=== PATIENT | female | born 1970 | race Caucasian/White ===

== ENCOUNTER 2018-02-19 16:28 | Inpatient (IN) | payer OTHER ==
[2018-02-19 17:02] VITALS: BMI 22.6
--- NOTE | 2018-02-19 19:44 | HP ---
CIWA Score - Admission Criteria [facility]ASAS Guidelines: Admission for Medically Managed Detox: Requires at least one of the followin. CIWA greater than 12 2. Seizures within the past 24 hours 3. Delirium tremens within the past 24 hours 4. Hallucinations within the past 24 hours 5. Acute intervention needed for co occurring medical disorder 6. Acute intervention needed for co occurring psychiatric disorder 7. Severe withdrawal that cannot be handled at a lower level of care (continued vomiting, continued diarrhea, abnormal vital signs) requiring intravenous medication and/or fluids 8. Admission ROS [facility] Chief Complaint: Pt states she is here for rehab from opioids- says she was buying percocets in the street. Last use was 5 days ago. Says she was at [facility] for detox about 5 days ago b/c she was withdrawing from opioids- they did not admit her and so pt states she detoxed at home without using any substances. Now wants to be admitted for rehab services. Med problems: Seizures: last seizure yesterday, on Keppra 750mg BID Back pain- muscle relaxant, flexeril, monteleukast- Asthma- proventil, symbicort Depression/anxiety/insomnia: cymbalata, Klonopin. PCP:Dr. Newman: in [facility] DUR/ISTOP: Pt has a prescription for Klonopin- 0.5mg/day, picked up 28 tabs on 01/30/18 Pt has a prescription for tramadol/tylenol- which pt states she is not taking Utox: cocaine. benzo Allergies/Adverse Reactions: Allergies Allergy/AdvReac Type Severity Reaction Status Date / Time No Known Allergies Allergy Verified 02/19/18 17:49 Exam Limitations: No Limitations - Ebola screening Have you traveled outside of the country in the last 21 days: No (N) Have you had contact with anyone from an Ebola affected area: No Have you been sick,other than usual withdrawal symptoms: No Do you have a fever: No - Review of Systems Constitutional: No Symptoms Reported EENT: reports: No Symptoms Reported Respiratory: reports: No Symptoms reported Cardiac: reports: No Symptoms Reported GI: reports: No Symptoms Reported : reports: No Symptoms Reported Musculoskeletal: reports: Other (body aches, anxiety) Integumentary: reports: No Symptoms Reported Neuro: reports: No Symptoms reported Endocrine: reports: No Symptoms Reported Hematology: reports: No Symptoms Reported Psychiatric: reports: Anxious Patient History - Patient Surgical History Past Surgical History: Yes Hx Cataract Extraction: Yes (corneal transplant X5 1995) Hx Appendectomy: Yes - PPD History Previous Implant?: Yes - Smoking Cessation Smoking history: Current every day smoker Have you smoked in the past 12 months: Yes Aproximately how many cigarettes per day: 20 Hx Chewing Tobacco Use: No Initiated information on smoking cessation: Yes 'Breaking Loose' booklet given: 02/19/18 - Substance & Tx. History Hx Substance Use: Yes Substance Use Type: Opiates, Tranquilizers - Substances Abused Oxycontin Date of Last Use: 02/14/18 Cocaine Frequency: 1-2 times per week Date of Last Use: 02/18/18 Admission Physical Exam BHS - Vital Signs Vital Signs: Vital Signs - 24 hr 02/19/18 17:00 Temperature 98.1 F Pulse Rate 100 H Respiratory 18 Rate Blood Pressure 116/60 - Physical General Appearance: Yes: Within Normal Limits HEENTM: Yes: Within Normal Limits, Other (corneal transplant L eye) Respiratory: Yes: Within Normal Limits Neck: Yes: Within Normal Limits Breast: Yes: Breast Exam Deferred Cardiology: Yes: Within Normal Limits Abdominal: Yes: Within Normal Limits Genitourinary: Yes: Within Normal Limits Back: Yes: Within Normal Limits Musculoskeletal: Yes: Within Normal Limits Extremities: Yes: Within Normal Limits Neurological: Yes: Within Normal Limits Integumentary: Yes: Within Normal Limits Lymphatic: Yes: Within Normal Limits - Diagnostic (1) Anxiety Current Visit: Yes Status: Acute (2) Opioid use disorder Current Visit: Yes Status: Acute (3) Cocaine use disorder Current Visit: Yes Status: Acute (4) Asthma Current Visit: Yes Status: Chronic (5) Seizures Current Visit: Yes Status: Acute (6) PTSD (post-traumatic stress disorder) Current Visit: Yes Status: Chronic (7) Depression Current Visit: Yes Status: Acute (8) Insomnia Current Visit: Yes Status: Acute (9) Klonopin use disorder, mild Current Visit: Yes Status: Acute BHS Breath Alcohol Content Breath Alcohol Content: 0 Urine Pregancy Test - Result Urine Test Results: Negative- NO Line Present Urine Drug Screen - Results Drug Screen Negative: No Urine Drug Screen Results: JAMIL-Cocaine, BZO-Benzodiazepines Inpatient Rehab Admission - Initial Determination Are CD services needed?: Yes Free of communicable disease: Yes Not in need of hospitalization: Yes - Rehab Admission Criteria Previous failed treatment: Yes Poor recovery environment: Yes Comorbidities: Yes Lacks judgement: Yes Patient is meeting Inpatient Rehab admission criteria:: Yes (rehab from opioids - finished detox)
[2018-02-19] MEDS ORDERED: LOPERAMIDE HCL 2 MG CAPSULE PO PRN (19:56)
[2018-02-19] MEDS ORDERED: MENTHOL/PHENOL 1 EACH UD MM PRN (19:56)
[2018-02-19] MEDS ORDERED: guaiFENesin/D-METHORPHAN HB 10 ML UNIT-DOSE CUPS PO PRN (19:56)
[2018-02-19] MEDS ORDERED: MAGNESIUM CITRATE 300 ML BOTTLE PO PRN (19:56)
[2018-02-19] MEDS ORDERED: MAGNESIUM HYDROX 2400MG/30ML ORAL SUSPENSION 30 ML CUP PO PRN (19:56)
[2018-02-19] MEDS ORDERED: MAG HYDROX/AL HYDROX/SIMETH 30 ML UNIT-DOSE CUP PO PRN (19:56)
[2018-02-19] MEDS ORDERED: P-EPHED 60MG/TRIPROLIDI 2.5MG TABLET PO PRN (19:56)
[2018-02-19] MEDS ORDERED: TUBERCULIN PPD 5 TU/0.1ML VIAL ID ONE ×2 (21:55→23:56)
[2018-02-19] MEDS ORDERED: MELATONIN 5 MG TABLETS PO PRN (22:00)
[2018-02-19] MEDS ORDERED: clonazePAM 0.5 MG TABLET PO SCH (22:00)
[2018-02-19] MEDS: THIAMINE HCL 100 MG TABLET (FP) PO SCH (23:55)
[2018-02-20] MEDS ORDERED: ALBUTEROL SO4 8 GM HFA INHALER IH PRN (00:05)
[2018-02-20] MEDS: IBUPROFEN 400 MG TABLET (FP) PO PRN (04:39)
[2018-02-20] MEDS ORDERED: PT OWN MED DRAWER 7, Y5N ONE ×2 (08:43→19:07)
[2018-02-20] MEDS: PANTOPRAZOLE 40 MG TABLET (FP) PO SCH (09:37)
[2018-02-20] MEDS: NICOTINE 21 MG/24 HOURS TOPICAL PATCH TD SCH (09:37)
[2018-02-20] MEDS: PRENATAL VITAMINS W/ FOLIC ACID TABLET (FP) PO SCH (09:37)
[2018-02-20] MEDS: levETIRAcetam 250 MG TABLET (FP) PO SCH ×2 (09:37→21:18)
[2018-02-20] MEDS: DULoxetine HCL 60 MG CAPSULE.DR PO SCH (09:37)
[2018-02-20] MEDS ORDERED: PATIENT'S OWN MEDICATION (NON-FORMULARY) (Montelukast Sodium [Singulair] 10 MG) PO SCH (10:00)
[2018-02-20] MEDS: clonazePAM 0.5 MG TABLET PO SCH (11:00)
[2018-02-20] MEDS: GABAPENTIN PO SCH ×3 (11:00→21:18)
[2018-02-20] MEDS: NICOTINE POLACRILEX 2 MG GUM BUC PRN (11:21)
[2018-02-20] MEDS: PATIENT'S OWN MEDICATION (NON-FORMULARY) (Albuterol Sulfate Inhaler - [Ventolin HFA Inhale PO SCH ×2 (11:25→11:26)
[2018-02-20] MEDS: LEVETIRACETAM PO SCH (11:26)
[2018-02-20 15:23] LABS: HEMOGLOBIN 12.6 GM/dL (10.7-15.3); MCH 29.7 pg (25.7-33.7); MCHC 31.7 g/dl (32.0-36.0); MEAN CELL VOLUME 93.9 fl (80-96); MEAN PLT VOLUME 7.9 fl (7.5-11.1); PLATELET COUNT 271 K/MM3 (134-434); RBC 4.26 M/mm3 (3.60-5.2); RDW 13.9 % (11.6-15.6); WHITE BLOOD COUNT 5.3 K/mm3 (4.0-10.0)
[2018-02-20 15:38] LABS: ALBUMIN 3.3 g/dl (3.4-5.0); ALK PHOS 39 U/L (45-117); ANION GAP 8 MMOL/L (8-16); BILIRUBIN,TOTAL 0.1 mg/dL (0.2-1); BLOOD UREA NITROGEN 23 mg/dL (7-18); CALCIUM 8.1 mg/dL (8.5-10.1); CHLORIDE 110 mmol/L (98-107); CO2 24 mmol/L (21-32); CREATININE 0.9 mg/dL (0.55-1.3); GLUCOSE,RANDOM 117 mg/dL (74-106); POTASSIUM 4.2 mmol/L (3.5-5.1); SGOT/AST 15 U/L (15-37); SGPT/ALT 19 U/L (13-61); SODIUM 142 mmol/L (136-145); TOT PROT 6.1 g/dl (6.4-8.2)
[2018-02-20 16:46] LABS: URINE APPEARANCE CLEAR; URINE BILIRUBIN NEGATIVE (<2.0 mg/dL); URINE COLOR LTYELLOW; URINE GLUCOSE (UA) NEGATIVE (NEGATIVE); URINE KETONE NEGATIVE (NEGATIVE); URINE LEUK ESTERASE TRACE (NEGATIVE); URINE NITRITE NEGATIVE (NEGATIVE); URINE PROTEIN NEGATIVE (NEGATIVE); URINE UROBILINOGEN NEGATIVE mg/dL (0.2-1.0)
[2018-02-20 17:11] LABS: CALCIUM OXALATE CRYSTALS MODERATE /hpf (NONE SEEN); EPI CELLS RARE /HPF (FEW); URINE HYALINE CAST 1 /lpf; URINE MUCUS RARE
[2018-02-20] MEDS: THIAMINE HCL 100 MG TABLET (FP) PO SCH (21:18)
[2018-02-20] MEDS: PATIENT'S OWN MEDICATION (NON-FORMULARY) (Montelukast Sodium [Singulair] 10 MG) PO SCH (21:19)
--- NOTE | 2018-02-21 08:23 | HP ---
Psychiatrist Admission - Data Date of interview: 02/21/18 Vital Signs: Vital Signs - 24 hr 02/21/18 02/21/18 02/21/18 00:30 03:30 06:53 Temperature 97.8 F Pulse Rate 83 Respiratory 17 18 18 Rate Blood Pressure 118/77 Allergies/Adverse Reactions: Allergies Allergy/AdvReac Type Severity Reaction Status Date / Time No Known Allergies Allergy Verified 02/19/18 17:49
--- NOTE | 2018-02-21 08:29 | HP ---
Psychiatrist Admission - Data Date of interview: 02/21/18 Identifying data: This is the first [facility] admission for this 47 years old female, mother of2 children, unemployed on SSI, domiciled Medical History: Significant for bronchial arthma, seizure disorder, back pain and history of corneal transplant. Smokes cigarettes 1 ppd Vital Signs: Vital Signs - 24 hr 02/21/18 02/21/18 02/21/18 00:30 03:30 06:53 Temperature 97.8 F Pulse Rate 83 Respiratory 17 18 18 Rate Blood Pressure 118/77 Allergies/Adverse Reactions: Allergies Allergy/AdvReac Type Severity Reaction Status Date / Time No Known Allergies Allergy Verified 02/19/18 17:49 Date of last physical exam: 02/19/18 Concur with the findings of this exam: Yes - Substance Abuse/Tx History Hx Substance Use: Yes Substance Use Type: Cocaine (Started using cocaine at age, consumes 1-2 times weekly. Last used on 02/18/17), Heroin, Opiates (Started using oxycontin at age, consumes. Last used on 02/14/18) Psychiatric Findings - Problem List ([place] 1, 2,3) (1) Opioid dependence Current Visit: Yes Status: Acute (2) Cocaine dependence Current Visit: Yes Status: Acute (3) Nicotine dependence Current Visit: Yes Status: Chronic
[2018-02-21] MEDS: NICOTINE 21 MG/24 HOURS TOPICAL PATCH TD SCH (09:41)
[2018-02-21] MEDS: clonazePAM 0.5 MG TABLET PO SCH (09:42)
[2018-02-21] MEDS: levETIRAcetam 250 MG TABLET (FP) PO SCH ×2 (09:42→21:15)
[2018-02-21] MEDS: PANTOPRAZOLE 40 MG TABLET (FP) PO SCH (09:43)
[2018-02-21] MEDS: PRENATAL VITAMINS W/ FOLIC ACID TABLET (FP) PO SCH (09:43)
[2018-02-21] MEDS: GABAPENTIN PO SCH ×2 (09:43→21:16)
[2018-02-21] MEDS: DULoxetine HCL 60 MG CAPSULE.DR PO SCH (09:43)
[2018-02-21] MEDS: IBUPROFEN 400 MG TABLET (FP) PO PRN (09:45)
[2018-02-21] MEDS: NICOTINE POLACRILEX 2 MG GUM BUC PRN ×3 (10:06→21:30)
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
[2018-02-21] MEDS: hydrOXYzine PAMOATE 50 MG CAPSULE (FP) PO PRN ×2 (11:22→20:35)
[2018-02-21] MEDS: PATIENT'S OWN MEDICATION (NON-FORMULARY) (Montelukast Sodium [Singulair] 10 MG) PO SCH (21:15)
[2018-02-21] MEDS: THIAMINE HCL 100 MG TABLET (FP) PO SCH (21:15)
[2018-02-21] MEDS: QUEtiapine FUMARATE 100 MG TABLET (FP) PO SCH (21:17)
[2018-02-22] MEDS: PANTOPRAZOLE 40 MG TABLET (FP) PO SCH (09:57)
[2018-02-22] MEDS: DULoxetine HCL 60 MG CAPSULE.DR PO SCH (09:57)
[2018-02-22] MEDS: levETIRAcetam 250 MG TABLET (FP) PO SCH ×2 (09:57→21:12)
[2018-02-22] MEDS: clonazePAM 0.5 MG TABLET PO SCH (09:57)
[2018-02-22] MEDS: PRENATAL VITAMINS W/ FOLIC ACID TABLET (FP) PO SCH (09:57)
[2018-02-22] MEDS: GABAPENTIN PO SCH ×2 (09:58→21:11)
[2018-02-22] MEDS: hydrOXYzine PAMOATE 50 MG CAPSULE (FP) PO PRN ×3 (09:59→21:10)
[2018-02-22] MEDS: NICOTINE 21 MG/24 HOURS TOPICAL PATCH TD SCH (09:59)
[2018-02-22] MEDS: ALBUTEROL SO4 8 GM HFA INHALER IH PRN (10:56)
[2018-02-22] MEDS: NICOTINE POLACRILEX 2 MG GUM BUC PRN (17:40)
[2018-02-22] MEDS: THIAMINE HCL 100 MG TABLET (FP) PO SCH (21:10)
[2018-02-22] MEDS: QUEtiapine FUMARATE 100 MG TABLET (FP) PO SCH (21:10)
[2018-02-22] MEDS: PATIENT'S OWN MEDICATION (NON-FORMULARY) (Montelukast Sodium [Singulair] 10 MG) PO SCH (21:11)
[2018-02-23] MEDS: PANTOPRAZOLE 40 MG TABLET (FP) PO SCH (10:08)
[2018-02-23] MEDS: GABAPENTIN PO SCH ×2 (10:08→21:12)
[2018-02-23] MEDS: DULoxetine HCL 60 MG CAPSULE.DR PO SCH (10:08)
[2018-02-23] MEDS: PRENATAL VITAMINS W/ FOLIC ACID TABLET (FP) PO SCH (10:08)
[2018-02-23] MEDS: levETIRAcetam 250 MG TABLET (FP) PO SCH ×2 (10:08→21:11)
[2018-02-23] MEDS: NICOTINE 21 MG/24 HOURS TOPICAL PATCH TD SCH (10:09)
[2018-02-23] MEDS: clonazePAM 0.5 MG TABLET PO SCH (10:09)
[2018-02-23] MEDS: hydrOXYzine PAMOATE 50 MG CAPSULE (FP) PO PRN ×3 (10:10→18:11)
[2018-02-23] MEDS: NICOTINE POLACRILEX 2 MG GUM BUC PRN (10:44)
[2018-02-23] MEDS: THIAMINE HCL 100 MG TABLET (FP) PO SCH (21:08)
[2018-02-23] MEDS: QUEtiapine FUMARATE 100 MG TABLET (FP) PO SCH (21:09)
[2018-02-23] MEDS: PATIENT'S OWN MEDICATION (NON-FORMULARY) (Montelukast Sodium [Singulair] 10 MG) PO SCH (21:09)
[2018-02-24] MEDS ORDERED: PT OWN MED DRAWER 7, Y5N ONE ×2 (08:54→12:07)
[2018-02-24] MEDS: DULoxetine HCL 60 MG CAPSULE.DR PO SCH (09:58)
[2018-02-24] MEDS: GABAPENTIN PO SCH ×2 (09:59→21:10)
[2018-02-24] MEDS: PANTOPRAZOLE 40 MG TABLET (FP) PO SCH (10:00)
[2018-02-24] MEDS: clonazePAM 0.5 MG TABLET PO SCH (10:00)
[2018-02-24] MEDS: NICOTINE 21 MG/24 HOURS TOPICAL PATCH TD SCH (10:00)
[2018-02-24] MEDS: PRENATAL VITAMINS W/ FOLIC ACID TABLET (FP) PO SCH (10:00)
[2018-02-24] MEDS: hydrOXYzine PAMOATE 50 MG CAPSULE (FP) PO PRN ×3 (10:02→19:05)
[2018-02-24] MEDS: levETIRAcetam 250 MG TABLET (FP) PO SCH ×2 (10:49→21:08)
[2018-02-24] MEDS: NICOTINE POLACRILEX 2 MG GUM BUC PRN (19:06)
[2018-02-24] MEDS: QUEtiapine FUMARATE 100 MG TABLET (FP) PO SCH (21:08)
[2018-02-24] MEDS: THIAMINE HCL 100 MG TABLET (FP) PO SCH (21:08)
[2018-02-24] MEDS: PATIENT'S OWN MEDICATION (NON-FORMULARY) (Montelukast Sodium [Singulair] 10 MG) PO SCH (21:08)
[2018-02-25] MEDS: NICOTINE POLACRILEX 2 MG GUM BUC PRN ×2 (08:56→19:45)
[2018-02-25] MEDS: hydrOXYzine PAMOATE 50 MG CAPSULE (FP) PO PRN ×3 (08:56→20:43)
[2018-02-25] MEDS: PANTOPRAZOLE 40 MG TABLET (FP) PO SCH (09:56)
[2018-02-25] MEDS: DULoxetine HCL 60 MG CAPSULE.DR PO SCH (09:56)
[2018-02-25] MEDS: PRENATAL VITAMINS W/ FOLIC ACID TABLET (FP) PO SCH (09:56)
[2018-02-25] MEDS: levETIRAcetam 250 MG TABLET (FP) PO SCH ×2 (09:56→21:00)
[2018-02-25] MEDS: GABAPENTIN PO SCH ×2 (09:57→21:02)
[2018-02-25] MEDS: NICOTINE 21 MG/24 HOURS TOPICAL PATCH TD SCH (09:58)
[2018-02-25] MEDS: clonazePAM 0.5 MG TABLET PO SCH (10:59)
[2018-02-25] MEDS: IBUPROFEN 400 MG TABLET (FP) PO PRN (12:42)
[2018-02-25] MEDS: ACETAMINOPHEN 325 MG TABLET (FP) PO PRN ×2 (16:43→19:45)
[2018-02-25] MEDS: THIAMINE HCL 100 MG TABLET (FP) PO SCH (21:00)
[2018-02-25] MEDS: QUEtiapine FUMARATE 100 MG TABLET (FP) PO SCH (21:00)
[2018-02-25] MEDS: PATIENT'S OWN MEDICATION (NON-FORMULARY) (Montelukast Sodium [Singulair] 10 MG) PO SCH (21:01)
[2018-02-26] MEDS ORDERED: PT OWN MED DRAWER 7, Y5N ONE ×2 (08:38→19:48)
[2018-02-26] MEDS: hydrOXYzine PAMOATE 50 MG CAPSULE (FP) PO PRN ×2 (08:40→13:38)
[2018-02-26] MEDS: IBUPROFEN 400 MG TABLET (FP) PO PRN (08:40)
[2018-02-26] MEDS: clonazePAM 0.5 MG TABLET PO SCH (10:08)
[2018-02-26] MEDS: PANTOPRAZOLE 40 MG TABLET (FP) PO SCH (10:08)
[2018-02-26] MEDS: NICOTINE 21 MG/24 HOURS TOPICAL PATCH TD SCH (10:08)
[2018-02-26] MEDS: PRENATAL VITAMINS W/ FOLIC ACID TABLET (FP) PO SCH (10:08)
[2018-02-26] MEDS: levETIRAcetam 250 MG TABLET (FP) PO SCH ×2 (10:08→21:11)
[2018-02-26] MEDS: DULoxetine HCL 60 MG CAPSULE.DR PO SCH (10:09)
[2018-02-26] MEDS: GABAPENTIN PO SCH ×2 (10:10→21:12)
[2018-02-26] MEDS ORDERED: CALCIUM 500MG/VIT-D 200 UNITS COMBO TABLET (FP) PO ONE (10:30)
--- NOTE | 2018-02-26 15:16 | PN ---
S Progress Note Note: Patient reports sleeping poorly on Seroquel 100 mg and Melatonin 5 mg taken at bedtime. Will increase Melaonin dosage to 10 mg
[2018-02-26] MEDS: THIAMINE HCL 100 MG TABLET (FP) PO SCH (21:11)
[2018-02-26] MEDS: QUEtiapine FUMARATE 100 MG TABLET (FP) PO SCH (21:11)
[2018-02-26] MEDS: CALCIUM 500MG/VIT-D 200 UNITS COMBO TABLET (FP) PO SCH (21:11)
[2018-02-26] MEDS: PATIENT'S OWN MEDICATION (NON-FORMULARY) (Montelukast Sodium [Singulair] 10 MG) PO SCH (21:12)
[2018-02-26] MEDS: MELATONIN 5 MG TABLETS PO PRN (21:14)
[2018-02-27] MEDS: NICOTINE POLACRILEX 2 MG GUM BUC PRN ×2 (08:15→18:13)
[2018-02-27] MEDS: levETIRAcetam 250 MG TABLET (FP) PO SCH ×2 (10:09→21:21)
[2018-02-27] MEDS: DULoxetine HCL 60 MG CAPSULE.DR PO SCH (10:09)
[2018-02-27] MEDS: PRENATAL VITAMINS W/ FOLIC ACID TABLET (FP) PO SCH (10:09)
[2018-02-27] MEDS: PANTOPRAZOLE 40 MG TABLET (FP) PO SCH (10:09)
[2018-02-27] MEDS: GABAPENTIN PO SCH ×2 (10:10→21:21)
[2018-02-27] MEDS: CALCIUM 500MG/VIT-D 200 UNITS COMBO TABLET (FP) PO SCH ×2 (10:10→21:21)
[2018-02-27] MEDS: NICOTINE 21 MG/24 HOURS TOPICAL PATCH TD SCH (10:11)
[2018-02-27] MEDS: clonazePAM 0.5 MG TABLET PO SCH (10:11)
[2018-02-27] MEDS: ACETAMINOPHEN 325 MG TABLET (FP) PO PRN (13:17)
[2018-02-27] MEDS: hydrOXYzine PAMOATE 50 MG CAPSULE (FP) PO PRN ×2 (15:44→18:12)
[2018-02-27] MEDS: QUEtiapine FUMARATE 100 MG TABLET (FP) PO SCH (21:21)
[2018-02-27] MEDS: PATIENT'S OWN MEDICATION (NON-FORMULARY) (Montelukast Sodium [Singulair] 10 MG) PO SCH (21:21)
[2018-02-27] MEDS: THIAMINE HCL 100 MG TABLET (FP) PO SCH (21:22)
[2018-02-27] MEDS: MELATONIN 5 MG TABLETS PO PRN (21:23)
[2018-02-28] MEDS: ACETAMINOPHEN 325 MG TABLET (FP) PO PRN (08:20)
[2018-02-28] MEDS: ALBUTEROL SO4 8 GM HFA INHALER IH PRN (08:22)
[2018-02-28] MEDS: hydrOXYzine PAMOATE 50 MG CAPSULE (FP) PO PRN ×2 (08:54→19:26)
[2018-02-28] MEDS: PANTOPRAZOLE 40 MG TABLET (FP) PO SCH (10:10)
[2018-02-28] MEDS: DULoxetine HCL 60 MG CAPSULE.DR PO SCH (10:10)
[2018-02-28] MEDS: PRENATAL VITAMINS W/ FOLIC ACID TABLET (FP) PO SCH (10:10)
[2018-02-28] MEDS: CALCIUM 500MG/VIT-D 200 UNITS COMBO TABLET (FP) PO SCH ×2 (10:10→21:46)
[2018-02-28] MEDS: levETIRAcetam 250 MG TABLET (FP) PO SCH ×2 (10:11→21:46)
[2018-02-28] MEDS: NICOTINE 21 MG/24 HOURS TOPICAL PATCH TD SCH (10:11)
[2018-02-28] MEDS: GABAPENTIN PO SCH ×2 (10:11→21:47)
[2018-02-28] MEDS ORDERED: ALBUTEROL SO4 0.083% IH SOL 2.5 MG/3 ML VIAL.NEB. NEB PRN (11:10)
[2018-02-28] MEDS: clonazePAM 0.5 MG TABLET PO SCH ×2 (12:16→21:45)
[2018-02-28] MEDS ORDERED: PT OWN MED DRAWER 7, Y5N ONE ×3 (16:39→22:18)
[2018-02-28] MEDS: IBUPROFEN 400 MG TABLET (FP) PO PRN (19:26)
[2018-02-28] MEDS: THIAMINE HCL 100 MG TABLET (FP) PO SCH (21:45)
[2018-02-28] MEDS: QUEtiapine FUMARATE 100 MG TABLET (FP) PO SCH (21:45)
[2018-02-28] MEDS: MELATONIN 5 MG TABLETS PO PRN (21:49)
[2018-02-28] MEDS: PATIENT'S OWN MEDICATION (NON-FORMULARY) (Montelukast Sodium [Singulair] 10 MG) PO SCH (22:18)
[2018-03-01] MEDS: hydrOXYzine PAMOATE 50 MG CAPSULE (FP) PO PRN ×3 (06:35→18:47)
[2018-03-01] MEDS: NICOTINE POLACRILEX 2 MG GUM BUC PRN ×2 (08:41→18:47)
[2018-03-01] MEDS: DULoxetine HCL 60 MG CAPSULE.DR PO SCH (09:39)
[2018-03-01] MEDS: levETIRAcetam 250 MG TABLET (FP) PO SCH ×2 (09:40→21:13)
[2018-03-01] MEDS: clonazePAM 0.5 MG TABLET PO SCH ×2 (09:40→21:14)
[2018-03-01] MEDS: GABAPENTIN PO SCH ×2 (09:40→21:13)
[2018-03-01] MEDS: NICOTINE 21 MG/24 HOURS TOPICAL PATCH TD SCH (09:41)
[2018-03-01] MEDS: PANTOPRAZOLE 40 MG TABLET (FP) PO SCH (09:41)
[2018-03-01] MEDS: PRENATAL VITAMINS W/ FOLIC ACID TABLET (FP) PO SCH (09:41)
[2018-03-01] MEDS: CALCIUM 500MG/VIT-D 200 UNITS COMBO TABLET (FP) PO SCH ×2 (09:41→21:13)
[2018-03-01] MEDS ORDERED: PT OWN MED DRAWER 7, Y5N ONE (20:01)
[2018-03-01] MEDS: PATIENT'S OWN MEDICATION (NON-FORMULARY) (Montelukast Sodium [Singulair] 10 MG) PO SCH (21:13)
[2018-03-01] MEDS: QUEtiapine FUMARATE 100 MG TABLET (FP) PO SCH (21:14)
[2018-03-01] MEDS: THIAMINE HCL 100 MG TABLET (FP) PO SCH (21:14)
[2018-03-01] MEDS: MELATONIN 5 MG TABLETS PO PRN (21:14)
[2018-03-02] MEDS: IBUPROFEN 400 MG TABLET (FP) PO PRN (09:05)
[2018-03-02] MEDS: CALCIUM 500MG/VIT-D 200 UNITS COMBO TABLET (FP) PO SCH ×2 (09:06→21:16)
[2018-03-02] MEDS: PRENATAL VITAMINS W/ FOLIC ACID TABLET (FP) PO SCH (09:06)
[2018-03-02] MEDS: DULoxetine HCL 60 MG CAPSULE.DR PO SCH (09:06)
[2018-03-02] MEDS: levETIRAcetam 250 MG TABLET (FP) PO SCH ×2 (09:07→21:16)
[2018-03-02] MEDS: GABAPENTIN PO SCH ×2 (09:07→21:15)
[2018-03-02] MEDS: PANTOPRAZOLE 40 MG TABLET (FP) PO SCH (09:07)
[2018-03-02] MEDS: NICOTINE 21 MG/24 HOURS TOPICAL PATCH TD SCH (09:08)
[2018-03-02] MEDS: clonazePAM 0.5 MG TABLET PO SCH ×2 (09:08→21:16)
[2018-03-02] MEDS: hydrOXYzine PAMOATE 50 MG CAPSULE (FP) PO PRN (16:25)
[2018-03-02] MEDS: NICOTINE POLACRILEX 2 MG GUM BUC PRN (16:26)
[2018-03-02] MEDS: QUEtiapine FUMARATE 100 MG TABLET (FP) PO SCH (21:16)
[2018-03-02] MEDS: THIAMINE HCL 100 MG TABLET (FP) PO SCH (21:16)
[2018-03-02] MEDS: PATIENT'S OWN MEDICATION (NON-FORMULARY) (Montelukast Sodium [Singulair] 10 MG) PO SCH (21:16)
[2018-03-02] MEDS: MELATONIN 5 MG TABLETS PO PRN (21:17)
[2018-03-03 07:02] VITALS: BP 102/69; PULSE 74; TEMP 97.5
[2018-03-03] MEDS ORDERED: PT OWN MED DRAWER 7, Y5N ONE (08:42)
[2018-03-03] MEDS: hydrOXYzine PAMOATE 50 MG CAPSULE (FP) PO PRN (08:45)
[2018-03-03] MEDS: NICOTINE POLACRILEX 2 MG GUM BUC PRN (08:45)
[2018-03-03] MEDS: clonazePAM 0.5 MG TABLET PO SCH (09:46)
[2018-03-03] MEDS: GABAPENTIN PO SCH (09:46)
[2018-03-03] MEDS: NICOTINE 21 MG/24 HOURS TOPICAL PATCH TD SCH (09:46)
[2018-03-03] MEDS: DULoxetine HCL 60 MG CAPSULE.DR PO SCH (09:46)
[2018-03-03] MEDS: PRENATAL VITAMINS W/ FOLIC ACID TABLET (FP) PO SCH (09:46)
[2018-03-03] MEDS: PANTOPRAZOLE 40 MG TABLET (FP) PO SCH (09:46)
[2018-03-03] MEDS: CALCIUM 500MG/VIT-D 200 UNITS COMBO TABLET (FP) PO SCH (09:46)
--- NOTE | 2018-03-03 09:50 | PN ---
Psychiatric Progress Note Vital Signs: Vital Signs Period Temp Pulse Resp BP Sys/Robison Pulse Ox Last 24 Hr 97.5 F 74 16-18 102/69 Date of Session: 03/03/18 Chief Complaint:: Discharge visit HPI: Cocaine ,Opioid dependence comorbid with PTSD. ROS: Seizures. Current Medications: Active Medications Generic Name Dose Route Start Last Admin Trade Name Freq PRN Reason Stop Dose Admin Acetaminophen 650 mg 02/19/18 19:56 02/28/18 08:20 Tylenol - PO 650 mg Q4H PRN Administration FEVER Al Hydroxide/Mg Hydroxide 30 ml 02/19/18 19:56 Mylanta Oral Suspension - PO Q6H PRN DYSPEPSIA Albuterol Sulfate 2 puff 02/20/18 10:21 02/28/18 08:22 Ventolin Hfa Inhaler - IH 2 puff Q4H PRN Administration SHORT OF BREATH/WHEEZING Albuterol Sulfate 1 amp 02/28/18 11:10 Ventolin 0.083% Nebulizer Soln - NEB Q4H PRN ASTHMA Calcium Carbonate/Cholecalciferol 1 tab 02/26/18 22:00 03/02/18 21:16 Os-Brandon 500+D - PO 1 tab BID CLAUDINE Administration Clonazepam 0.5 mg 02/28/18 12:00 03/02/18 21:16 Klonopin - PO 03/07/18 11:59 0.5 mg BID CLAUDINE Administration Duloxetine HCl 60 mg 02/20/18 10:00 03/02/18 09:06 Cymbalta - PO 60 mg DAILY CLAUDINE Administration Eucalyptus/Menthol/Phenol/Sorbitol 1 each 02/19/18 19:56 Cepastat Lozenge - MM Q4H PRN SORE THROAT Guaifenesin 10 ml 02/19/18 19:56 02/28/18 08:20 Robitussin Dm - PO 10 ml Q6H PRN Administration COUGH Hydroxyzine Pamoate 50 mg 02/19/18 19:56 03/03/18 08:45 Vistaril - PO 50 mg Q4H PRN Administration AGITATION Ibuprofen 400 mg 02/19/18 19:56 03/02/18 09:05 Motrin - PO 400 mg Q6H PRN Administration Pain level 4-6 Levetiracetam 750 mg 02/20/18 10:00 03/02/18 21:16 Keppra - PO 750 mg BID CLAUDINE Administration Loperamide HCl 4 mg 02/19/18 19:56 Imodium - PO Q6H PRN DIARRHEA Magnesium Citrate 300 ml 02/19/18 19:56 Citroma - PO Q48H PRN CONSTIPATION Magnesium Hydroxide 30 ml 02/19/18 19:56 02/21/18 15:03 Milk Of Magnesia - PO 30 ml DAILY PRN Administration CONSTIPATION Melatonin 10 mg 02/26/18 15:14 03/02/18 21:17 Melatonin PO 10 mg HS PRN Administration INSOMNIA Nicotine 21 mg 02/20/18 10:00 03/02/18 09:08 Nicoderm Patch - TD 21 mg DAILY CLAUDINE Administration Nicotine Polacrilex 2 mg 02/20/18 00:07 03/03/18 08:45 Nicorette Gum - BUC 2 mg Q2H PRN Administration NICOTINE REPLACEMENT RX Non-Formulary Medication 400 mg 02/19/18 22:00 03/02/18 21:15 Gabapentin [Neurontin -] PO 400 mg BID CLAUDINE Administration Non-Formulary Medication 10 mg 02/20/18 22:00 03/02/18 21:16 Montelukast Sodium [Singulair] PO 10 mg DAILY@2200 CLAUDINE Administration Pantoprazole Sodium 40 mg 02/20/18 10:00 03/02/18 09:07 Protonix - PO 40 mg DAILY CLAUDINE Administration Multivit/Folic Acid/Iron 1 tab 02/20/18 10:00 03/02/18 09:06 Vitamins (Sjr) - PO 1 tab DAILY CLAUDINE Administration Pseudoephedrine/Triprolidine 1 combo 02/19/18 19:56 Actifed - PO TID PRN NASAL CONGESTION Quetiapine Fumarate 100 mg 02/21/18 22:00 03/02/18 21:16 Seroquel - PO 100 mg HS CLAUDINE Administration Thiamine HCl 100 mg 02/19/18 22:00 03/02/18 21:16 Vitamin B1 - PO 100 mg HS CLAUDINE Administration Current Side Effect: No Lab tests ordered: No Lab tests reviewed: Yes Provider note:: Patient completed this program today.She has met her treatment goala sand will continue to address her issues on outpatient basis at [facility] in [facility].Patient reports finding that current medications including Neurontin 400 mg po bid,Cymbalta 60 mg po daily,SEroquel 100 mg po hs help to cope with anxiety mood instability,depression.Scripts for 30 days provided. Supportive therapy provided focusing on relapse prevention.Coping skills,support utilization has been discussed as well as other resourses to ariana sparks. Patient is stable for discharge today. Total face to face time:: 30 Mental Status Exam - Mental Status Exam Alert and Oriented to: Time, Place, Person Cognitive Function: Grossly Intact Patient Appearance: Well Groomed Mood: Euthymic Affect: Appropriate, Mood Congruent, Normal Range Patient Behavior: Cooperative Speech Pattern: Clear Voice Loudness: Normal Thought Process: Goal Oriented Thought Disorder: Not Present Hallucinations: Denies Suicidal Ideation: Denies Homicidal Ideation: Denies Insight/Judgement: Fair Sleep: Fair Appetite: Good Muscle strength/Tone: Normal Gait/Station: Normal Psychiatric Treatment Plan - Problem List (1) Asthma Current Visit: Yes (2) Cocaine dependence Current Visit: Yes (3) Opioid dependence Current Visit: Yes (4) Seizure disorder Current Visit: Yes (5) PTSD (post-traumatic stress disorder) Current Visit: Yes (6) Nicotine dependence Current Visit: Yes
--- NOTE | 2018-03-03 10:28 | PN ---
"[facility] Progress Note Note: NURSE CALLED TO REPORT PATIENT IS DISCHARGING EARLY AND NEEDS SOME RX. PT HAS OWN PRIMARY CARE DOCTOR AND WILL BE FOLLOWING UP AFTER DISCHARGE. PT REPORTS SHE HAS RX FOR KEPPRA AND NO NEED FOR RX. COURTESY RX FOR PROTONIX 40 MG PO DAILY #28, CALCIUM 1 TAB PO DAILY #28; ALBUTEROL INHALER PRN #1; SINGULAIR 10 MG PO HS #28. Vital Signs - 24 hr 03/03/18 03/03/18 00:30 07:01 Temperature 97.5 F L Pulse Rate 74 Respiratory 16 18 Rate Blood Pressure 102/69 Laboratory Tests 02/20/18 02/20/18 02/20/18 09:25 09:25 09:25 WBC 5.3 RBC 4.26 Hgb 12.6 Hct 40.0 MCV 93.9 MCH 29.7 MCHC 31.7 L RDW 13.9 Plt Count 271 MPV 7.9 Sodium 142 Potassium 4.2 Chloride 110 H Carbon Dioxide 24 Anion Gap 8 BUN 23 H Creatinine 0.9 Creat Clearance w eGFR > 60 Random Glucose 117 H Calcium 8.1 L Total Bilirubin 0.1 L AST 15 ALT 19 Alkaline Phosphatase 39 L Total Protein 6.1 L Albumin 3.3 L Urine Color Urine Appearance Urine pH Ur Specific [place] Urine Protein Urine Glucose (UA) Urine Ketones Urine Blood Urine Nitrite Urine Bilirubin Urine Urobilinogen Ur Leukocyte Esterase Urine WBC (Auto) Urine RBC (Auto) Ur Epithelial Cells Calcium Oxalate Crystal Hyaline Casts Urine Mucus RPR Titer Nonreactive 02/20/18 11:00 WBC RBC Hgb Hct MCV MCH MCHC RDW Plt Count MPV Sodium Potassium Chloride Carbon Dioxide Anion Gap BUN Creatinine Creat Clearance w eGFR Random Glucose Calcium Total Bilirubin AST ALT Alkaline Phosphatase Total Protein Albumin Urine Color Ltyellow Urine Appearance Clear Urine pH 5.0 Ur Specific [place] 1.019 Urine Protein Negative Urine Glucose (UA) Negative Urine Ketones Negative Urine Blood Negative Urine Nitrite Negative Urine Bilirubin Negative Urine Urobilinogen Negative Ur Leukocyte Esterase Trace Urine WBC (Auto) 3 Urine RBC (Auto) <1 Ur Epithelial Cells Rare Calcium Oxalate Crystal Moderate Hyaline Casts 1 Urine Mucus Rare RPR Titer The Drug Utilization Report below displays all of the controlled substance prescriptions, if any, that your patient has filled in the last twelve months. The information displayed on this report is compiled from pharmacy submissions to the Department, and accurately reflects the information as submitted by the pharmacies. This report was requested by: Shante Resendez | Reference #: [id number] You have not added a JOSE number. Keeping your JOSE number(s) up to date on the My JOSE Numbers page will enable the separation of your prescriptions from others ' in the search results. Others' Prescriptions Patient Name: Caitie Clemons Date: 1970 Address: [address] [place] [address] Sex: Female Rx Written Rx Dispensed Drug Quantity Days Supply Prescriber Name 01/31/2018 02/06/2018 tramadol-acetaminophen 37.5-325 mg tab 40 5 Perepelyuk, Ирина 01/29/2018 01/30/2018 clonazepam 0.5 mg tablet 28 28 Dudzicz-Slowik, Madina Cherelle 01/15/2018 01/15/2018 clonazepam 0.5 mg tablet 14 14 Miracle Murphy 12/30/2017 12/30/2017 clonazepam 0.5 mg tablet 14 14 Dudzicz-Slowik, Madina Cherelle 11/12/2017 11/14/2017 acetaminophen-cod #4 tablet 60 30 Santiago Klein MD 10/29/2017 10/29/2017 clonazepam 0.5 mg tablet 28 28 Dudzicz-Slowik, Madina Cherelle 09/17/2017 09/18/2017 clonazepam 0.5 mg tablet 28 28 Dudzicz-Slowik, Madina Cherelle Patient Name: Caitie Clemons Date: 1970 Address: [address], [place] [address] Sex: Female Rx Written Rx Dispensed Drug Quantity Days Supply Prescriber Name 08/26/2017 08/28/2017 acetaminophen-cod #4 tablet 60 30 Perepelyuk, Ирина Patient Name: Caitie Clemons Date: 1970 Address: [address] [place], [place] [id number] Sex: Female Rx Written Rx Dispensed Drug Quantity Days Supply Prescriber Name 08/08/2017 08/08/2017 oxycodone-acetaminophen 10-325 mg tab 42 7 Perepelyuk, Ирина 07/31/2017 08/07/2017 clonazepam 0.5 mg tablet 28 28 Dudzicz-Slowik, Madina Cherelle 07/09/2017 07/10/2017 acetaminophen-cod #4 tablet 60 30 Perepelyuk, Ирина 07/03/2017 07/08/2017 clonazepam 0.5 mg tablet 30 30 Melvin, Madina Villarreal 06/06/2017 06/07/2017 acetaminophen-cod #4 tablet 60 30 Perepelyuk, Ирина 06/05/2017 06/05/2017 clonazepam 0.5 mg tablet 30 30 ThomasdKristina, Madina Villarreal 05/02/2017 05/03/2017 clonazepam 0.5 mg tablet 30 30 Dudanne-Lauren, Madina Cherelle 04/05/2017 04/08/2017 clonazepam 0.5 mg tablet 21 21 Madina Charles 04/05/2017 04/08/2017 acetaminophen-cod #3 tablet 120 30 Perepelyuk, Ирина * - Drugs marked with an asterisk are compound drugs. If the compound drug is made up of more than one controlled substance, then each controlled substance will be a separate row in the table. PLAN:PT TO FOLLOW UP WITH [facility] FOR MEDICAL MANAGEMENT OR CALL OFFICE IF NEEDED TODAY. FOLLOW UP WITH REFERRAL AT [facility] FOR AFTERCARE DRUG TREATMENT."
== END 2018-03-03 09:51 | disposition home or self-care (01) | DRG 772 ==
LOC: YASAS 16:28 → Y3E 18:45
PROVIDERS: ADMIT Psychiatry & Neurology Psychiatry; ATTEND Psychiatry & Neurology Psychiatry
PROC: HZ42ZZZ Group Counseling for Substance Abuse Treatment, Cognitive-Behavioral (ICD-10-PCS; principal; 2018-02-19)
DX: F11.20 Opioid dependence, uncomplicated (principal); F14.20 Cocaine dependence, uncomplicated; F13.90 Sedative, hypnotic, or anxiolytic use, unspecified, uncomplicated; F17.210 Nicotine dependence, cigarettes, uncomplicated; F43.10 Post-traumatic stress disorder, unspecified; F41.9 Anxiety disorder, unspecified; F32.9 Major depressive disorder, single episode, unspecified; J45.909 Unspecified asthma, uncomplicated; G40.909 Epilepsy, unspecified, not intractable, without status epilepticus; G47.00 Insomnia, unspecified
CPT/HCPCS: 36415; 80053; 81003; 81015; 85027; 86593